=== PATIENT | male | born 1935 | race Caucasian/White ===

== ENCOUNTER 2020-09-05 23:07 | Emergency (ER) | payer MEDICARE, OTHER, SELFPAY ==
[2020-09-05 23:15] VITALS: BP 156/76; PULSE 57; RESP 18; TEMP 36.8; O2SAT 97
[2020-09-05 23:20] LABS: Glucose Point of Care 196 mg/dl (65-105)
--- NOTE | 2020-09-06 00:03 | ED.GENADULT ---
HPI - General Adult General Chief complaint: Unspecified Stated complaint: Needs insulin shot? Time Seen by Provider: 09/05/20 23:56 History of Present Illness HPI narrative: Patient is an 84-year-old male who presents ER for insulin injection. Patient is currently traveling and forgot his Levemir. He takes 20 units twice a day. He requires refill as well. No additional complaints. Related Data Allergies Allergy/AdvReac Type Severity Reaction Status Date / Time Penicillins Allergy Rash Verified 09/05/20 23:18 Review of Systems Constitutional: Constitutional: Denies chills, Denies fatigue and Denies fever(s) Gastrointestinal: Gastrointestinal: Denies abdominal pain, Denies nausea and Denies vomiting PMFSH Past Medical History Medical History (Updated 09/06/20 @ 00:15 by Bryn Ramirez MD) Diabetes Surgical History Surgical History (Updated 09/06/20 @ 00:04 by Bryn Ramirez MD) No pertinent past surgical history Exam Narrative: Exam Narrative: GENERAL: Well-appearing, well-nourished, and in no acute distress. HEAD: Normocephalic, atraumatic. Respiratory: No respiratory distress or audible wheezing/stridor. EXTREMITIES: Normal range of motion. Ambulates with steady gait. NEURO: No focal deficits. Alert and oriented x3. PSYCH: Normal mood and affect. Course Course Emergency Course: Patient be given just with some medication and be given a refill. Discharge home. Vital Signs Vital signs: Vital Signs Temperature 98.2 F 09/05/20 23:15 Pulse Rate 57 L 09/05/20 23:15 Respiratory Rate 18 09/05/20 23:15 Blood Pressure 156/76 H 09/05/20 23:15 Pulse Oximetry 97 09/05/20 23:15 Temperature 98.2 F 09/05/20 23:15 Pulse Rate 57 L 09/05/20 23:15 Respiratory Rate 18 09/05/20 23:15 Blood Pressure 156/76 H 09/05/20 23:15 Pulse Oximetry 97 09/05/20 23:15 Medical Decision Making Vital Signs Vital Signs: Vital Signs Temperature 98.2 F 09/05/20 23:15 Pulse Rate 57 L 09/05/20 23:15 Respiratory Rate 18 09/05/20 23:15 Blood Pressure 156/76 H 09/05/20 23:15 Pulse Oximetry 97 09/05/20 23:15 Temperature 98.2 F 09/05/20 23:15 Pulse Rate 57 L 09/05/20 23:15 Respiratory Rate 18 09/05/20 23:15 Blood Pressure 156/76 H 09/05/20 23:15 Pulse Oximetry 97 09/05/20 23:15 Lab Data Labs: Lab Results 09/05/20 Range/Units 23:18 POC Capillary Glucose 196 H (65-105) mg/dl Discharge Plan Discharge Clinical Impression: Medication refill Patient Disposition: Home, Self-Care Condition: Stable Instructions: Medicine Refill (ED) Additional Instructions: Return the ER if you have fever over 100.4 ?F, you cannot keep down food or water, you have additional concerns. Prescriptions: New Levemir FlexTouch U-100 Insuln 100 unit/mL (3 mL) insulin pen 20 unit subcut BID Qty: 3 RF: 0 Follow-up/Referrals: PHYSICIAN NOT ON STAFF,NONSTAFF [Primary Care Provider] - 1 Week
[2020-09-06] MEDS: INSULIN DETEMIR 100 UNITS/ML 20 UNITS SUB-Q (00:09)
== END 2020-09-06 00:24 | disposition home or self-care (01) ==
PROVIDERS: Emergency Provider Emergency Medicine
DX: E11.9 Type 2 diabetes mellitus without complications (principal); Z79.4 Long term (current) use of insulin
CPT/HCPCS: 82948; 99282; J1815